=== PATIENT | female | born 1980 | race Caucasian/White ===

== ENCOUNTER 2016-11-02 14:51 | Emergency (ER) | payer OTHER ==
[~2016-11-02] VITALS: Wt 72.6 kg
[~2016-11-02 14:51] MED LIST: CEFUROXIME AXE250 MG PO; CELEXA; CIPROFLOXACIN500 MG PO; CLEOCIN150 MG PO; CLINDAMYCIN HC300 MG PO; DAYPRO600 M1 PO; DICLOFENAC POTA50 MG PO; DIFLUCAN150 MG PO; EFFEXOR; FIORICET 325 MG1 TAB PO; FLAGYL500 MG PO; FLEXERIL10 MG PO; FLEXERIL5 MG PO; FLONASE 0.05% 121 EA NAS; GEODON; HYDROCODONE BIT1 T11 PO; HYDROXYZINE PAM50 MG PO; LEVAQUIN750 MG PO; MACROBID100 M1 PO; MEDROL DOSEPAK4 MG PO; MOTRIN600 MG PO; MOTRIN800 MG PO; Motrin,Rufen800 MG PO; NAPROSYN500 MG PO; NEURONTIN300 MG PO; NITROFURANTOIN100 MG PO; ONDANSETRON4 MG PO; PERCOCET 325 MG1 TA2 PO; PHENERGAN W/DM120 ML PO; PREDNICOT10 MG PO; PREDNICOT20 MG PO; PREDNISONE10 MG PO; PROAIR HFA0.09 MG/AC INH; PYRIDIUM200 MG PO; ROBAXIN750 MG PO; SAPHRIS10 M1 SL; SINEMET 25-100M1 TAB PO; TYLENOL W/CODEI1 TA2 PO; ULTRAM50 MG PO; VALIUM; VENTOLIN H0.09 MG/AC INH; VIBRAMYCIN100 MG PO; VICODIN 5/500 505 MG PO; VICODIN 500 MG-1 TAB PO; VOLTAREN75 MG PO; ZITHROMAX250 MG PO; ZOFRAN4 MG PO
[2016-11-02 15:11] VITALS: BP 160/90
[2016-11-02] MEDS ORDERED: Motrin,Rufen800 MG PO (17:53)
[2016-11-02] MEDS ORDERED: CYCLOBENZAPRINE5 M3 PO (17:53)
== END 2016-11-02 18:40 | disposition home or self-care (01) ==
LOC: ED 14:51
DX: M54.16 Radiculopathy, lumbar region (principal); M25.551 Pain in right hip; F17.200 Nicotine dependence, unspecified, uncomplicated; Z98.51 Tubal ligation status; Z98.890 Other specified postprocedural states; Z91.040 Latex allergy status; Z88.1 Allergy status to other antibiotic agents; Z88.8 Allergy status to other drugs, medicaments and biological substances

== ENCOUNTER 2017-04-04 18:29 | Emergency (ER) | payer OTHER ==
[~2017-04-04] VITALS: Wt 72.6 kg
[~2017-04-04 18:29] MED LIST changes: +CYCLOBENZAPRINE5 M3 PO
[2017-04-04 18:30] VITALS: BP 125/64
[2017-04-04] MEDS ORDERED: Motrin,Rufen800 MG PO (19:59)
== END 2017-04-04 20:00 | disposition home or self-care (01) ==
LOC: ED 18:29
DX: M25.571 Pain in right ankle and joints of right foot (principal); F17.200 Nicotine dependence, unspecified, uncomplicated; F41.9 Anxiety disorder, unspecified; F32.9 Major depressive disorder, single episode, unspecified; G89.29 Other chronic pain; Z88.2 Allergy status to sulfonamides; Z91.040 Latex allergy status

== ENCOUNTER 2017-05-24 20:48 | Emergency (ER) | payer OTHER ==
[~2017-05-24] VITALS: Ht 167.6 cm; Wt 70.3 kg
[2017-05-24 20:50] VITALS: BP 131/83
[2017-05-24] MEDS ORDERED: VENTOLIN,PR2 MG/5 ML INH (20:53)
[2017-05-24 21:16] LABS: BILIRUBIN NEGATIVE (NEGATIVE); BLOOD NEGATIVE (NEGATIVE); CLARITY SL CLOUDY (CLEAR); COLOR YELLOW (YELLOW); GLUCOSE NEGATIVE (NEGATIVE); KETONE NEGATIVE (NEGATIVE); LEUKO ESTERASE TRACE (NEGATIVE); NITRITE NEGATIVE (NEGATIVE); UROBILINOGEN 0.2 E.U./dl (0.2-1.0)
[2017-05-24 21:35] LABS: BACTERIA 1+; EPITHELIAL CELLS TNTC; RBC 0-2 rbc/hpf (0-2)
[2017-05-24] MEDS ORDERED: MEDROL DOSEPAK4 MG PO (22:08)
[2017-05-24] MEDS ORDERED: TESSALON PERLE100 M1 PO (22:08)
[2017-05-24] MEDS ORDERED: DIFLUCAN150 MG PO (22:08)
[2017-05-24] MEDS ORDERED: OMNICEF300 MG PO (22:08)
== END 2017-05-24 22:22 | disposition home or self-care (01) ==
LOC: ED 20:48
PROVIDERS: Nurse Practitioner Family
DX: Z11.3 Encounter for screening for infections with a predominantly sexual mode of transmission (principal); J06.9 Acute upper respiratory infection, unspecified; J45.909 Unspecified asthma, uncomplicated; F17.200 Nicotine dependence, unspecified, uncomplicated; J32.1 Chronic frontal sinusitis; Z98.51 Tubal ligation status; Z98.890 Other specified postprocedural states; Z79.899 Other long term (current) drug therapy; Z91.040 Latex allergy status; Z88.1 Allergy status to other antibiotic agents; Z88.8 Allergy status to other drugs, medicaments and biological substances

== ENCOUNTER 2017-08-20 21:54 | Emergency (ER) | payer OTHER ==
[~2017-08-20] VITALS: Ht 167.6 cm; Wt 68.0 kg
[~2017-08-20 21:54] MED LIST changes: +OMNICEF300 MG PO; +TESSALON PERLE100 M1 PO; +VENTOLIN,PR2 MG/5 ML INH
[2017-08-20 21:57] VITALS: BP 141/95
[2017-08-20] MEDS ORDERED: CLINDAMYCIN HC300 MG PO (22:37)
[2017-08-20] MEDS ORDERED: Motrin,Rufen800 MG PO (22:37)
== END 2017-08-20 22:38 | disposition home or self-care (01) ==
LOC: ED 21:54
DX: L02.412 Cutaneous abscess of left axilla (principal); F17.200 Nicotine dependence, unspecified, uncomplicated; Z91.040 Latex allergy status; Z88.1 Allergy status to other antibiotic agents

== ENCOUNTER 2018-03-09 15:24 | Emergency (ER) | payer OTHER ==
[~2018-03-09] VITALS: Ht 167.6 cm; Wt 70.3 kg
[~2018-03-09 15:24] MED LIST changes: +CLINDAMYCIN150 MG PO; +Peridex 473 ML473 ML PO
[2018-03-09 15:52] LABS: BILIRUBIN NEGATIVE (NEGATIVE); BLOOD 1+ (NEGATIVE); CLARITY CLEAR (CLEAR); COLOR YELLOW (YELLOW); GLUCOSE NEGATIVE (NEGATIVE); KETONE NEGATIVE (NEGATIVE); LEUKO ESTERASE 1+ (NEGATIVE); NITRITE NEGATIVE (NEGATIVE); SPECIFIC GRAVITY 1.025 (1.005-1.030); UROBILINOGEN 0.2 E.U./dl (0.2-1.0)
[2018-03-09 16:07] LABS: EPITHELIAL CELLS 45-50
[2018-03-09 16:08] LABS: BACTERIA TRACE
[2018-03-09] MEDS ORDERED: OMNICEF300 MG PO (16:48)
[2018-03-09] MEDS ORDERED: DIFLUCAN150 MG PO (16:48)
[2018-03-09] MEDS ORDERED: ZYRTEC10 MG PO (16:48)
[2018-03-09 17:10] VITALS: BP 128/80
== END 2018-03-09 17:20 | disposition home or self-care (01) ==
LOC: ED 15:24
PROVIDERS: Nurse Practitioner Family
DX: J01.90 Acute sinusitis, unspecified (principal); N39.0 Urinary tract infection, site not specified; N89.8 Other specified noninflammatory disorders of vagina; Z11.3 Encounter for screening for infections with a predominantly sexual mode of transmission; Z91.040 Latex allergy status; Z88.2 Allergy status to sulfonamides

== ENCOUNTER 2019-02-14 17:57 | Emergency (ER) | payer OTHER ==
[~2019-02-14] VITALS: Ht 167.6 cm; Wt 61.2 kg
[~2019-02-14 17:57] MED LIST changes: +ZYRTEC10 MG PO
[2019-02-14 18:00] VITALS: BP 128/99
[2019-02-14] MEDS ORDERED: ULTRAM50 MG PO (22:14)
[2019-02-14] MEDS ORDERED: ZANAFLEX2 M1 PO (22:14)
== END 2019-02-14 22:25 | disposition home or self-care (01) ==
LOC: ED 17:57
DX: S16.1XXA Strain of muscle, fascia and tendon at neck level, initial encounter (principal); S80.212A Abrasion, left knee, initial encounter; S60.415A Abrasion of left ring finger, initial encounter; S60.411A Abrasion of left index finger, initial encounter; S90.812A Abrasion, left foot, initial encounter; S40.811A Abrasion of right upper arm, initial encounter; S09.90XA Unspecified injury of head, initial encounter; M48.061 Spinal stenosis, lumbar region without neurogenic claudication; M43.16 Spondylolisthesis, lumbar region; Z91.041 Radiographic dye allergy status; Z88.2 Allergy status to sulfonamides; Z79.2 Long term (current) use of antibiotics; Y04.8XXA Assault by other bodily force, initial encounter; Y93.89 Activity, other specified; Y92.89 Other specified places as the place of occurrence of the external cause; Y99.8 Other external cause status

== ENCOUNTER 2019-06-29 20:18 | Emergency (ER) | payer OTHER ==
[~2019-06-29] VITALS: Ht 170.1 cm; Wt 63.5 kg
[~2019-06-29 20:18] MED LIST changes: +ZANAFLEX2 M1 PO
[2019-06-29 20:30] VITALS: BP 125/89
== END 2019-06-29 23:25 | disposition home or self-care (01) ==
LOC: ED 20:18
DX: S46.912A Strain of unspecified muscle, fascia and tendon at shoulder and upper arm level, left arm, initial encounter (principal); Z91.040 Latex allergy status; Z88.2 Allergy status to sulfonamides; Z88.8 Allergy status to other drugs, medicaments and biological substances; Z79.899 Other long term (current) drug therapy; V09.9XXA Pedestrian injured in unspecified transport accident, initial encounter; Y93.89 Activity, other specified; Y92.89 Other specified places as the place of occurrence of the external cause; Y99.8 Other external cause status

== ENCOUNTER 2020-08-31 20:18 | Emergency (ER) | payer OTHER ==
[~2020-08-31] VITALS: Ht 170.1 cm
[2020-08-31 20:26] VITALS: BP 127/76
[2020-08-31] MEDS ORDERED: CLINDAMYCIN HC300 MG PO (21:02)
== END 2020-08-31 21:13 | disposition home or self-care (01) ==
LOC: ED 20:18
DX: L03.114 Cellulitis of left upper limb (principal); L03.113 Cellulitis of right upper limb; Z91.040 Latex allergy status; Z88.2 Allergy status to sulfonamides; Z79.2 Long term (current) use of antibiotics; Z79.899 Other long term (current) drug therapy; Z98.51 Tubal ligation status

== ENCOUNTER 2022-02-04 12:44 | Emergency (ER) | payer OTHER ==
[~2022-02-04] VITALS: Ht 167.6 cm; Wt 81.6 kg
[2022-02-04 13:37] VITALS: BP 146/92
[2022-02-04 18:07] LABS: BILIRUBIN Negative (Negative); BLOOD 1+ (Negative); CLARITY Cloudy (Clear); COLOR Yellow (Yellow); GLUCOSE Negative (Negative); KETONE Negative (Negative); LEUKO ESTERASE 2+ (Negative); NITRITE Negative (Negative); SPECIFIC GRAVITY >= 1.030 (1.001-1.030); UROBILINOGEN 0.2 E.U./dl (0.0-1.0)
[2022-02-04] MEDS ORDERED: VIBRAMYCIN100 MG PO (18:17)
[2022-02-04] MEDS ORDERED: METRONIDAZOLE500 M1 PO (18:17)
[2022-02-04 19:10] LABS: BACTERIA TRACE; EPITHELIAL CELLS 21-30; WBC 21-30 wbc/hpf (0-5)
== END 2022-02-04 18:20 | disposition home or self-care (01) ==
LOC: ED 12:44
PROVIDERS: Nurse Practitioner Family
DX: A64 Unspecified sexually transmitted disease (principal); Z91.040 Latex allergy status; Z88.1 Allergy status to other antibiotic agents; Z98.51 Tubal ligation status; Z90.89 Acquired absence of other organs; Z98.890 Other specified postprocedural states

== ENCOUNTER 2022-05-07 19:23 | Emergency (ER) | payer OTHER ==
[~2022-05-07] VITALS: Ht 167.6 cm; Wt 83.9 kg
[~2022-05-07 19:23] MED LIST changes: +METRONIDAZOLE500 M1 PO
[2022-05-07 19:30] VITALS: BP 155/115
[2022-05-07] MEDS ORDERED: VIBRAMYCIN100 MG PO (21:35)
[2022-05-07] MEDS ORDERED: PROAIR RESPICL90 MCG INH (21:58)
== END 2022-05-07 22:18 | disposition home or self-care (01) ==
LOC: ED 19:23
DX: L02.411 Cutaneous abscess of right axilla (principal); Z91.040 Latex allergy status; Z88.1 Allergy status to other antibiotic agents; Z98.51 Tubal ligation status; Z90.89 Acquired absence of other organs; Z98.890 Other specified postprocedural states

== ENCOUNTER 2022-05-09 20:11 | Emergency (ER) | payer OTHER ==
[~2022-05-09] VITALS: Ht 167.6 cm; Wt 83.9 kg
[~2022-05-09 20:11] MED LIST changes: +PROAIR RESPICL90 MCG INH
[2022-05-09 20:24] VITALS: BP 149/87
== END 2022-05-09 22:52 | disposition home or self-care (01) ==
LOC: ED 20:11
DX: Z48.00 Encounter for change or removal of nonsurgical wound dressing (principal); Z91.040 Latex allergy status; Z88.8 Allergy status to other drugs, medicaments and biological substances; Z98.890 Other specified postprocedural states; Z98.51 Tubal ligation status; Z90.89 Acquired absence of other organs

== ENCOUNTER 2023-03-13 17:14 | Emergency (ER) | payer OTHER ==
[~2023-03-13] VITALS: Ht 167.6 cm; Wt 81.6 kg
[~2023-03-13 17:14] MED LIST changes: +MELOXICAM15 MG PO; +ONDANSETRON4 MG SL
[2023-03-13 17:35] VITALS: BP 118/87
== END 2023-03-13 17:59 | disposition home or self-care (01) ==
LOC: ED 17:14
DX: N89.8 Other specified noninflammatory disorders of vagina (principal); J45.909 Unspecified asthma, uncomplicated; Z76.0 Encounter for issue of repeat prescription; F17.200 Nicotine dependence, unspecified, uncomplicated; Z91.040 Latex allergy status; Z88.2 Allergy status to sulfonamides; Z79.899 Other long term (current) drug therapy; Z79.2 Long term (current) use of antibiotics; Z98.51 Tubal ligation status

== ENCOUNTER 2023-05-08 02:01 | Emergency (ER) | payer OTHER ==
[~2023-05-08] VITALS: Ht 160 cm; Wt 74.8 kg
[2023-05-08 02:10] VITALS: BP 161/94
[2023-05-08] MEDS ORDERED: Acetaminophen/Hydrocodone 5 MG/325 MG TABLET PO ONE (02:15)
[2023-05-08] MEDS ORDERED: PENICILLIN V POTASSIUM 500 MG TAB PO ONE (02:15)
[2023-05-08] MEDS ORDERED: Ondansetron Hydrochloride 4 MG TAB SL ONE (02:15)
[2023-05-08] MEDS ORDERED: PENICILLIN VK500 MG PO (02:17)
== END 2023-05-08 02:30 | disposition home or self-care (01) ==
LOC: ED 02:01
DX: K02.9 Dental caries, unspecified (principal); Z91.040 Latex allergy status; Z88.2 Allergy status to sulfonamides; Z98.51 Tubal ligation status

== ENCOUNTER 2024-10-14 04:49 | Inpatient (IN) | payer OTHER ==
[~2024-10-14] VITALS: Ht 170.1 cm; Wt 88.7 kg
[~2024-10-14 04:49] MED LIST changes: +PENICILLIN VK500 MG PO
[2024-10-14 05:04] VITALS: BP 144/88
[2024-10-14 06:24] LABS: BASO # 0.1 10*3/uL (0.0-0.1); BASO % 0.6 % (0.0-1.0); EOS # 0.4 10*3/uL (0.0-0.4); EOS % 3.2 % (1.0-4.0); MEAN CELL VOLUME 86.8 fl (81.0-99.0); MEAN CORPUSCULAR HGB 28.4 pg (27.0-31.0); MEAN PLATELET VOLUME 9.5 fl (9.6-12.3); MONO # 0.8 10*3/uL (0.1-1.0); MONO % 6.5 % (3.0-9.0); NEUT # 7.9 10*3/uL (2.3-7.9); NEUT % 62.4 % (47.0-73.0); NUCLEATED RED BLOOD CELL 0.0 % (0.0-0.0); NUCLEATED RED BLOOD CELL 0.0 10*3/uL (0.0-0.0); PLATELET COUNT AUTOMATED 356 10*3/uL (130-400); RED CELL DISTRI WIDTH 13.3 % (0-14.5)
[2024-10-14 06:47] LABS: BUN 13 mg/dl (9-23)
[2024-10-14 08:00] VITALS: BP 121/72
[2024-10-14] MEDS ORDERED: Ondansetron Hydrochloride 4 MG/2 ML VIAL IV ONE (08:20)
[2024-10-14] MEDS ORDERED: BISACODYL 5 MG TAB PO PRN (09:45)
[2024-10-14 10:46] VITALS: BP 108/63
[2024-10-14 11:30] VITALS: BP 121/72
[2024-10-14 16:00] VITALS: BP 136/88
[2024-10-14] MEDS ORDERED: Acetaminophen/Oxycodone 5 MG/325 MG TABLET PO PRN (16:15)
[2024-10-14 20:00] VITALS: BP 126/64
[2024-10-15] VITALS (11 sets, daily range): BP systolic 98–150; BP diastolic 57–93
[2024-10-15 04:53] LABS: URINE AMPHETAMINES Positive (1000ng/ml); URINE BARBITURATES Negative (200ng/ml); URINE BENZODIAZEPINES Negative (200ng/ml); URINE CANNABINOIDS (THC) Positive (50ng/ml); URINE COCAINE Positive (300ng/ml); URINE METHADONE Negative (300ng/ml); URINE OPIATES Positive (300ng/ml); URINE PHENCYCLIDINE Negative (25ng/ml)
[2024-10-15 06:08] LABS: BASO # 0.1 10*3/uL (0.0-0.1); BASO % 0.6 % (0.0-1.0); EOS # 0.6 10*3/uL (0.0-0.4); EOS % 4.3 % (1.0-4.0); MEAN CELL VOLUME 88.4 fl (81.0-99.0); MEAN CORPUSCULAR HGB 28.4 pg (27.0-31.0); MEAN PLATELET VOLUME 9.9 fl (9.6-12.3); MONO # 0.9 10*3/uL (0.1-1.0); MONO % 7.2 % (3.0-9.0); NEUT # 7.3 10*3/uL (2.3-7.9); NEUT % 56.8 % (47.0-73.0); NUCLEATED RED BLOOD CELL 0.0 % (0.0-0.0); NUCLEATED RED BLOOD CELL 0.0 10*3/uL (0.0-0.0); PLATELET COUNT AUTOMATED 390 10*3/uL (130-400); RED CELL DISTRI WIDTH 13.6 % (0-14.5)
[2024-10-15 06:32] LABS: BUN 13 mg/dl (9-23); FREE T4 0.94 ng/dl (0.89-1.76); LDL CHOLESTEROL 78 mg/dL (9-159); SGPT/ALT 10 U/L (5-49)
[2024-10-15 07:37] LABS: VITAMIN D, 25-HYDROXY 34.4 ng/mL (30-100)
[2024-10-15] MEDS ORDERED: Lactated Ringer's Solution 1,000 ML IV ONE (07:49)
[2024-10-15] MEDS ORDERED: ACETAMINOPHEN 100 ML IV ONE (07:49)
[2024-10-15] MEDS ORDERED: Bupivacaine Hydrochloride/Ep2 30 ML VIAL ONE ×2 (08:06→08:20)
[2024-10-15] MEDS ORDERED: Midazolam Hydrochloride 2 MG/2 ML VIAL IV ONE (10:20)
[2024-10-15] MEDS ORDERED: SEVOFLURANE 250 ML BOT INH ONE (10:20)
[2024-10-15] MEDS ORDERED: PROPOFOL 200 MG/20 ML VIAL IV ONE (10:20)
[2024-10-15] MEDS ORDERED: Ondansetron Hydrochloride 4 MG/2 ML VIAL IV ONE (10:20)
[2024-10-15] MEDS ORDERED: Lidocaine Hydrochloride 2% 5 ML SDV IM ONE (10:20)
[2024-10-15] MEDS ORDERED: Dexamethasone Sodium Phospha 4 MG/ML VIAL IV ONE (10:20)
[2024-10-16] VITALS: BP 142/79
[2024-10-16 06:49] LABS: MEAN CORPUSCULAR HGB 28.2 pg (27.0-31.0); MEAN PLATELET VOLUME 9.8 fl (9.6-12.3); NUCLEATED RED BLOOD CELL 0.0 % (0.0-0.0); NUCLEATED RED BLOOD CELL 0.0 10*3/uL (0.0-0.0); PLATELET COUNT AUTOMATED 411 10*3/uL (130-400); RED CELL DISTRI WIDTH 13.1 % (0-14.5)
[2024-10-16 06:51] LABS: MANUAL DIFF REFLEX YES
[2024-10-16 06:52] LABS: MEAN CELL VOLUME 84.9 fl (81.0-99.0)
[2024-10-16 07:18] LABS: PLATELET SUFFICIENCY HIGH (NORMAL)
[2024-10-16 08:00] VITALS: BP 150/83
[2024-10-16 08:41] LABS: BUN 8 mg/dl (9-23)
[2024-10-16] MEDS ORDERED: LORazepam 0.5 MG TAB PO PRN (09:35)
[2024-10-16 12:00] VITALS: BP 125/77
[2024-10-16 15:18] LABS: MEAN CELL VOLUME 86.5 fl (81.0-99.0); MEAN CORPUSCULAR HGB 28.8 pg (27.0-31.0); MEAN PLATELET VOLUME 9.6 fl (9.6-12.3); NUCLEATED RED BLOOD CELL 0.0 % (0.0-0.0); NUCLEATED RED BLOOD CELL 0.0 10*3/uL (0.0-0.0); PLATELET COUNT AUTOMATED 428 10*3/uL (130-400); RED CELL DISTRI WIDTH 13.2 % (0-14.5)
[2024-10-16 15:25] LABS: MANUAL DIFF REFLEX YES
[2024-10-16 15:43] LABS: PLATELET SUFFICIENCY HIGH (NORMAL)
[2024-10-16 16:00] VITALS: BP 99/61
[2024-10-16 20:00] VITALS: BP 113/62
[2024-10-17] VITALS: BP 136/71
[2024-10-17 06:36] LABS: MEAN CELL VOLUME 87.4 fl (81.0-99.0); MEAN CORPUSCULAR HGB 28.3 pg (27.0-31.0); MEAN PLATELET VOLUME 9.5 fl (9.6-12.3); NUCLEATED RED BLOOD CELL 0.0 % (0.0-0.0); NUCLEATED RED BLOOD CELL 0.0 10*3/uL (0.0-0.0); PLATELET COUNT AUTOMATED 404 10*3/uL (130-400); RED CELL DISTRI WIDTH 13.5 % (0-14.5)
[2024-10-17 06:39] LABS: MANUAL DIFF REFLEX YES
[2024-10-17 06:58] LABS: PLATELET SUFFICIENCY HIGH (NORMAL); VACUOLATION OF NEUTROPHILS SLIGHT
[2024-10-17 08:00] VITALS: BP 144/75
[2024-10-17] MEDS ORDERED: OXYCODONE-ACET1 EAC3 PO (11:17)
[2024-10-17] MEDS ORDERED: COLACE100 MG PO (11:17)
[2024-10-17] MEDS ORDERED: DOXYCYCLINE MO100 MG PO (11:17)
[2024-10-17 12:00] VITALS: BP 146/81
== END 2024-10-17 16:20 | disposition home or self-care (01) | DRG 385 ==
LOC: ED 04:49 → EDHOLD 08:24 → 5E 08:24 → EDHOLD 08:24 → 5E 08:24 → 4E 08:24 → 5E 10-16 08:16
PROVIDERS: Emergency Medicine; ADMIT Student in an Organized Health Care Education/Training Program; ATTEND Student in an Organized Health Care Education/Training Program
PROC: 0H9U0ZZ Drainage of Left Breast, Open Approach (ICD-10-PCS; principal; 2024-10-15)
DX: N61.0 Mastitis without abscess (principal); N61.1 Abscess of the breast and nipple; M48.061 Spinal stenosis, lumbar region without neurogenic claudication; F17.210 Nicotine dependence, cigarettes, uncomplicated; F12.90 Cannabis use, unspecified, uncomplicated; H66.92 Otitis media, unspecified, left ear; J06.9 Acute upper respiratory infection, unspecified; R73.9 Hyperglycemia, unspecified; D72.829 Elevated white blood cell count, unspecified; E87.8 Other disorders of electrolyte and fluid balance, not elsewhere classified; Z88.0 Allergy status to penicillin; Z80.3 Family history of malignant neoplasm of breast

== ENCOUNTER → 2024-10-18 | Outpatient (CLI) | payer OTHER ==
[~2024-10-18] MED LIST changes: +COLACE100 MG PO; +DOXYCYCLINE MO100 MG PO; +OXYCODONE-ACET1 EAC3 PO
== END | disposition home or self-care (01) ==
LOC: WOUNDCARE 03:09
PROVIDERS: ATTEND Nurse Practitioner Family
DX: N61.1 Abscess of the breast and nipple (principal); N61.22 Granulomatous mastitis, left breast; R60.9 Edema, unspecified; F12.90 Cannabis use, unspecified, uncomplicated; F17.210 Nicotine dependence, cigarettes, uncomplicated; Z98.890 Other specified postprocedural states; Z79.899 Other long term (current) drug therapy

== ENCOUNTER → 2024-10-20 | Outpatient (CLI) | payer OTHER | LOC: WOUNDCARE 04:41 | PROVIDERS: ATTEND Nurse Practitioner Family | DX: N61.1 Abscess of the breast and nipple (principal); N61.22 Granulomatous mastitis, left breast; F17.210 Nicotine dependence, cigarettes, uncomplicated; F12.90 Cannabis use, unspecified, uncomplicated; Z98.890 Other specified postprocedural states; Z79.899 Other long term (current) drug therapy ==

== ENCOUNTER → 2024-10-24 | Outpatient (CLI) | payer OTHER | END | disposition home or self-care (01) | LOC: WOUNDCARE 01:49 | PROVIDERS: ATTEND Nurse Practitioner Family | DX: N61.1 Abscess of the breast and nipple (principal); N61.22 Granulomatous mastitis, left breast; F17.210 Nicotine dependence, cigarettes, uncomplicated; Z98.890 Other specified postprocedural states; Z79.899 Other long term (current) drug therapy ==

== ENCOUNTER → 2024-10-30 | Outpatient (CLI) | payer OTHER | END | disposition home or self-care (01) | LOC: WOUNDCARE 00:48 | PROVIDERS: ATTEND Nurse Practitioner Family | DX: N61.1 Abscess of the breast and nipple (principal); N61.22 Granulomatous mastitis, left breast; L98.492 Non-pressure chronic ulcer of skin of other sites with fat layer exposed; F17.210 Nicotine dependence, cigarettes, uncomplicated; F11.10 Opioid abuse, uncomplicated ==

== ENCOUNTER → 2024-11-01 | Outpatient (CLI) | payer OTHER | END | disposition home or self-care (01) | LOC: WOUNDCARE 00:49 | PROVIDERS: ATTEND Nurse Practitioner Family | DX: N61.1 Abscess of the breast and nipple (principal); N61.22 Granulomatous mastitis, left breast; F17.210 Nicotine dependence, cigarettes, uncomplicated; Z98.890 Other specified postprocedural states; Z79.899 Other long term (current) drug therapy ==

== ENCOUNTER → 2024-11-03 | Outpatient (CLI) | payer OTHER | END | disposition home or self-care (01) | LOC: WOUNDCARE 00:20 | PROVIDERS: ATTEND Nurse Practitioner Family | DX: N61.1 Abscess of the breast and nipple (principal); N61.22 Granulomatous mastitis, left breast; R60.9 Edema, unspecified; F17.210 Nicotine dependence, cigarettes, uncomplicated; F12.90 Cannabis use, unspecified, uncomplicated; Z79.899 Other long term (current) drug therapy ==

== ENCOUNTER → 2024-11-06 | Outpatient (CLI) | payer OTHER | END | disposition home or self-care (01) | LOC: WOUNDCARE 00:11 | PROVIDERS: ATTEND Nurse Practitioner Family | DX: N61.1 Abscess of the breast and nipple (principal); N61.22 Granulomatous mastitis, left breast; F17.210 Nicotine dependence, cigarettes, uncomplicated; F11.10 Opioid abuse, uncomplicated ==

== ENCOUNTER → 2024-11-08 | Outpatient (CLI) | payer OTHER | END | disposition home or self-care (01) | LOC: WOUNDCARE 01:34 | PROVIDERS: ATTEND Nurse Practitioner Family | DX: N61.1 Abscess of the breast and nipple (principal); N61.22 Granulomatous mastitis, left breast; F17.210 Nicotine dependence, cigarettes, uncomplicated; F11.10 Opioid abuse, uncomplicated ==

== ENCOUNTER → 2024-11-10 | Outpatient (CLI) | payer OTHER | END | disposition home or self-care (01) | LOC: WOUNDCARE 01:17 | PROVIDERS: ATTEND Nurse Practitioner Family | DX: N61.1 Abscess of the breast and nipple (principal); N61.22 Granulomatous mastitis, left breast; F17.210 Nicotine dependence, cigarettes, uncomplicated; F11.10 Opioid abuse, uncomplicated ==

== ENCOUNTER 2024-11-15 02:44 | Emergency (ER) | payer OTHER ==
[2024-11-15 02:59] VITALS: BP 132/91
[2024-11-15] MEDS ORDERED: Tdap Vaccine 0.5 ML SYR (Adult Vaccine) IM ONE (03:55)
== END 2024-11-15 04:05 | disposition home or self-care (01) ==
LOC: ED 02:44
DX: S61.431A Puncture wound without foreign body of right hand, initial encounter (principal); F17.210 Nicotine dependence, cigarettes, uncomplicated; Z91.040 Latex allergy status; Z88.2 Allergy status to sulfonamides; Z79.899 Other long term (current) drug therapy; Z90.89 Acquired absence of other organs; Z98.890 Other specified postprocedural states; W22.8XXA Striking against or struck by other objects, initial encounter; Y93.89 Activity, other specified; Y92.89 Other specified places as the place of occurrence of the external cause; Y99.8 Other external cause status

== ENCOUNTER → 2024-11-15 | Outpatient (CLI) | payer OTHER | END | disposition home or self-care (01) | LOC: WOUNDCARE 02:40 | PROVIDERS: ATTEND Nurse Practitioner Family | DX: N61.1 Abscess of the breast and nipple (principal); N61.22 Granulomatous mastitis, left breast; F17.210 Nicotine dependence, cigarettes, uncomplicated; Z98.890 Other specified postprocedural states; Z79.899 Other long term (current) drug therapy ==

== ENCOUNTER → 2024-11-17 | Outpatient (CLI) | payer OTHER | END | disposition home or self-care (01) | LOC: WOUNDCARE 00:17 | PROVIDERS: ATTEND Nurse Practitioner Family | DX: N61.1 Abscess of the breast and nipple (principal); N61.22 Granulomatous mastitis, left breast; F17.210 Nicotine dependence, cigarettes, uncomplicated; F12.90 Cannabis use, unspecified, uncomplicated; Z98.890 Other specified postprocedural states; Z79.899 Other long term (current) drug therapy ==

== ENCOUNTER → 2024-11-23 | Outpatient (CLI) | payer OTHER | END | disposition home or self-care (01) | LOC: WOUNDCARE 02:49 | PROVIDERS: ATTEND Nurse Practitioner Family | DX: N61.1 Abscess of the breast and nipple (principal); N61.22 Granulomatous mastitis, left breast; F17.210 Nicotine dependence, cigarettes, uncomplicated; Z98.890 Other specified postprocedural states; Z79.899 Other long term (current) drug therapy ==

== ENCOUNTER → 2024-11-30 | Outpatient (CLI) | payer OTHER | END | disposition home or self-care (01) | LOC: WOUNDCARE 00:37 | PROVIDERS: ATTEND Nurse Practitioner Family | DX: N61.1 Abscess of the breast and nipple (principal); N61.22 Granulomatous mastitis, left breast; F17.210 Nicotine dependence, cigarettes, uncomplicated; Z98.890 Other specified postprocedural states; Z79.899 Other long term (current) drug therapy ==

== ENCOUNTER 2025-01-09 02:58 | Emergency (ER) | payer OTHER ==
[~2025-01-09] VITALS: Ht 167.6 cm; Wt 81.6 kg
[2025-01-09] MEDS ORDERED: Ondansetron Hydrochloride 4 MG TAB SL ONE (03:15)
[2025-01-09] MEDS ORDERED: Ondansetron4 MG PO (04:31)
== END 2025-01-09 04:36 | disposition home or self-care (01) ==
LOC: ED 02:58
DX: B34.9 Viral infection, unspecified (principal); F12.90 Cannabis use, unspecified, uncomplicated; F41.9 Anxiety disorder, unspecified; F31.9 Bipolar disorder, unspecified; Z20.822 Contact with and (suspected) exposure to COVID-19; Z98.890 Other specified postprocedural states; Z90.89 Acquired absence of other organs; Z91.040 Latex allergy status; Z88.1 Allergy status to other antibiotic agents; Z98.51 Tubal ligation status

== ENCOUNTER 2025-01-11 22:34 | Emergency (ER) | payer OTHER ==
[~2025-01-11] VITALS: Ht 167.6 cm; Wt 79.4 kg
[~2025-01-11 22:34] MED LIST changes: +Ondansetron4 MG PO
[2025-01-11 22:54] VITALS: BP 150/109
[2025-01-11] MEDS ORDERED: SODIUM CHLORIDE 0.9% 1,000 ML IV ONE (23:50)
[2025-01-12 00:04] LABS: BASO # 0.1 10*3/uL (0.0-0.1); BASO % 0.5 % (0.0-1.0); EOS # 0.3 10*3/uL (0.0-0.4); EOS % 3.1 % (1.0-4.0); MEAN CELL VOLUME 87.4 fl (81.0-99.0); MEAN CORPUSCULAR HGB 28.3 pg (27.0-31.0); MEAN PLATELET VOLUME 9.3 fl (9.6-12.3); MONO # 0.9 10*3/uL (0.1-1.0); MONO % 8.3 % (3.0-9.0); NEUT # 6.4 10*3/uL (2.3-7.9); NEUT % 57.9 % (47.0-73.0); NUCLEATED RED BLOOD CELL 0.0 % (0.0-0.0); NUCLEATED RED BLOOD CELL 0.0 10*3/uL (0.0-0.0); PLATELET COUNT AUTOMATED 368 10*3/uL (130-400); RED CELL DISTRI WIDTH 13.6 % (0-14.5)
[2025-01-12 00:23] LABS: BUN 6 mg/dl (9-23)
[2025-01-12] MEDS ORDERED: MAGNESIUM SULFATE 50 ML IV SCH (01:00)
[2025-01-12] MEDS ORDERED: ZITHROMAX250 MG PO (04:32)
[2025-01-12] MEDS ORDERED: AZITHROMYCIN 250 MG TAB PO ONE (04:35)
== END 2025-01-12 04:42 | disposition home or self-care (01) ==
LOC: ED 22:34
PROVIDERS: Emergency Medicine
DX: J40 Bronchitis, not specified as acute or chronic (principal); B34.9 Viral infection, unspecified; F31.9 Bipolar disorder, unspecified; F41.9 Anxiety disorder, unspecified; F12.90 Cannabis use, unspecified, uncomplicated; F17.210 Nicotine dependence, cigarettes, uncomplicated; Z90.89 Acquired absence of other organs; Z98.890 Other specified postprocedural states; Z88.1 Allergy status to other antibiotic agents; Z91.040 Latex allergy status; Z98.51 Tubal ligation status; Z20.822 Contact with and (suspected) exposure to COVID-19